=== PATIENT | female | born 1955 | race Caucasian/White ===

== ENCOUNTER 2019-05-22 23:00 | Emergency (ER) | payer MEDICARE, MEDICAID ==
[~2019-05-22] VITALS: Ht 165.1 cm; Wt 75.5 kg
[~2019-05-22 23:00] MED LIST: ALBU18HF2 INH; BECL7.3A INH; CARI350T PO; CLON-529 PO; GABA300C PO; lidocaine 1%/epinephrine 1:100,000 injection 50ml vial ONE
[2019-05-23] MEDS ORDERED: TETanus/Pertussis (Acell)/Diphther VAC/PF (Tdap-Adult) 0.5ml syringe IM ONE (01:00)
[2019-05-23 01:37] VITALS: BP 127/91
[2019-06-02] MEDS ORDERED: PROM12.512 PO (14:55)
[2019-06-02] MEDS ORDERED: ALBU1.257 NEB (14:55)
[2019-06-02] MEDS ORDERED: VICOPROFEN PO (14:55)
[2019-06-02] MEDS ORDERED: HYDR-89 PO (17:18)
== END 2019-05-23 01:37 | disposition home or self-care (01) ==
LOC: ER 23:01
DX: S61.012A Laceration without foreign body of left thumb without damage to nail, initial encounter (principal); J44.9 Chronic obstructive pulmonary disease, unspecified; M19.90 Unspecified osteoarthritis, unspecified site; G89.29 Other chronic pain; Z98.890 Other specified postprocedural states; Z91.041 Radiographic dye allergy status; Z88.2 Allergy status to sulfonamides; Z91.040 Latex allergy status; Z79.899 Other long term (current) drug therapy; W45.8XXA Other foreign body or object entering through skin, initial encounter; Y93.H2 Activity, gardening and landscaping; Y92.89 Other specified places as the place of occurrence of the external cause; Y99.8 Other external cause status
CPT/HCPCS: 12002; 12042; 90471; 99284; 99285

== ENCOUNTER 2019-05-29 05:20 | Emergency (ER) | payer MEDICARE, MEDICAID ==
[~2019-05-29] VITALS: Ht 165.1 cm; Wt 79.5 kg
[~2019-05-29 05:20] MED LIST changes: -lidocaine 1%/epinephrine 1:100,000 injection 50ml vial ONE
[2019-05-29 05:27] VITALS: BP 155/78
[2019-05-29] MEDS ORDERED: clindamycin 150mg capsule PO ONE (05:50)
[2019-05-29] MEDS ORDERED: CLIN150C2 PO (05:56)
[2019-06-02] MEDS ORDERED: VICOPROFEN PO (14:55)
[2019-06-02] MEDS ORDERED: ALBU1.257 NEB (14:55)
[2019-06-02] MEDS ORDERED: PROM12.512 PO (14:55)
[2019-06-02] MEDS ORDERED: HYDR-89 PO (17:18)
== END 2019-05-29 06:06 | disposition home or self-care (01) ==
LOC: ER 05:21
DX: S61.011D Laceration without foreign body of right thumb without damage to nail, subsequent encounter (principal); L08.9 Local infection of the skin and subcutaneous tissue, unspecified; J44.9 Chronic obstructive pulmonary disease, unspecified; M19.90 Unspecified osteoarthritis, unspecified site; G89.29 Other chronic pain; Z98.890 Other specified postprocedural states; Z88.8 Allergy status to other drugs, medicaments and biological substances; Z88.2 Allergy status to sulfonamides; Z91.040 Latex allergy status; Z79.899 Other long term (current) drug therapy; X58.XXXD Exposure to other specified factors, subsequent encounter
CPT/HCPCS: 99283

== ENCOUNTER 2019-06-03 05:09 | Day surgery (SDC) | payer MEDICARE, MEDICAID ==
[2019-06-02 15:48] LABS: BASOPHILS % (AUTO) 0.1 % (0-1); EOSINOPHILS # (AUTO) 0.2 X10'3 (0-0.9); LYMPHOCYTES # (AUTO) 1.7 X10'3 (1.1-4.8); LYMPHOCYTES % (AUTO) 43.5 % (21-51); MEAN CORPUSCULAR HEMOGLOBIN 30.5 PG (27.0-31.0); MEAN CORPUSCULAR HGB CONC 32.9 g/dL (33.0-36.5); MEAN CORPUSCULAR VOLUME 92.5 FL (78-98); MONOCYTES # (AUTO) 0.4 X10'3 (0-0.9); MONOCYTES % (AUTO) 9.2 % (2-12); NEUTROPHILS # (AUTO) 1.7 X10'3 (1.8-7.7); NEUTROPHILS % (AUTO) 42.2 % (42-75); PRE OP HEMATOCRIT 35.8 % (35.0-45.0); PRE OP HEMOGLOBIN 11.8 g/dL (12.0-16.0); PRE OP PLATELET COUNT 198 X10'3 (140-440); RED BLOOD COUNT 3.87 X10'6 (4.20-5.60); RED CELL DISTRIBUTION WIDTH 13.6 % (11.5-14.5)
[2019-06-02 15:57] LABS: PRE OP PROTIME 10.1 SECONDS (9.0-12.0)
[2019-06-02 16:00] LABS: ALBUMIN 4.1 G/DL (3.4-5.0); ALBUMIN/GLOBULIN RATIO 1.1 (1.1-1.5); ALKALINE PHOSPHATASE 68 IU/L (46-116); BLOOD UREA NITROGEN 23 MG/DL (7-18); BUN/CREATININE RATIO 28.8 (6.6-38.0); CALCIUM 9.6 MG/DL (8.5-10.1); CHLORIDE 105 MMOL/L (99-107); PRE OP ALT 33 U/L (30-65); PRE OP ANION GAP 8 (8-16); PRE OP AST 24 U/L (10-37); PRE OP BILIRUB, TOTAL 0.2 MG/DL (0.0-1.0); PRE OP GLUCOSE 105 MG/DL (70-104); PRE OP POTASSIUM 4.5 MMOL/L (3.4-5.1); PRE OP SODIUM 140 MMOL/L (135-145); TOTAL CARBON DIOXIDE 27.2 MMOL/L (24-32); eGFR 72 ML/MIN
[~2019-06-03] VITALS: Ht 165.1 cm; Wt 78.4 kg
[~2019-06-03 05:09] MED LIST changes: +ALBU1.257 NEB; -ALBU18HF2 INH; -BECL7.3A INH; -CARI350T PO; -CLON-529 PO; +HYDR-89 PO; +PROM12.512 PO; +ringers solution, lacted 1,000 ML IV SCH
[2019-06-03] MEDS ORDERED: ceFAZolin 1GM/D5W- ADD-VANTAGE 50 ML IV ONE (05:30)
[2019-06-03] MEDS ORDERED: famotidine 20mg tablet PO ONE (05:30)
[2019-06-03 05:45] VITALS: BP 99/51
[2019-06-03] MEDS ORDERED: LIDOcaine 1% (10mg/ml) 2ml vial ONE (06:17)
[2019-06-03] MEDS ORDERED: BUPIVAcaine/PF 2.5 mg/ml (0.25%) 30ml vial ONE (06:40)
[2019-06-03] MEDS ORDERED: albuterol 2.5 MG/3 ML nebule NEB ONE (07:10)
--- NOTE | 2019-06-03 07:18 | NUR ---
RN ORDERED 2.5MG SVN TX FOR THE PT. I WAS GETTING READY TO ADMINISTER THE TX, DR GONZALEZ ADVISED THAT THE PT DIDNT NEED THE TX AFTER THE MEDICATION WAS POURED INTO THE NEBULIZER. MEDICATION WAS POURED OUT AND WASTED.
[2019-06-03] MEDS ORDERED: LIDOcaine 1% 30ml preserv. free vial ONE (07:19)
[2019-06-03] MEDS ORDERED: fentaNYL/PF 50MCG/1 ML 2ML syringe ONE (07:20)
[2019-06-03] MEDS ORDERED: MIDAZolam 5mg/5ml vial ONE (07:21)
[2019-06-03] MEDS ORDERED: ketorolac trometh. 30mg/ml inj. ONE (07:23)
[2019-06-03] MEDS ORDERED: morphine 4 MG/ML inj SYRINge IV PRN ×2 (07:45)
[2019-06-03] MEDS ORDERED: proCHLORperazine 10 MG/2 ml inj IV PRN (07:45)
[2019-06-03] MEDS ORDERED: ringers solution, lacted 1,000 ML IV SCH (07:45)
[2019-06-03] MEDS ORDERED: ondansetron/PF 4mg/2ml inj IV PRN (07:45)
[2019-06-03] MEDS ORDERED: meperidine/PF 25mg/ml syringe IV PRN ×3 (07:45)
[2019-06-03 07:59] VITALS: BP 108/79
--- NOTE | 2019-06-03 07:59 | NUR ---
Received from OR via you, accompanied by Anesthesiologist CARLOS and report given by Anesthesiolgist. All VS stable, NC at 3L O2 100%, left wrist IV 20G IVF at 100cc/hr, right forarm/wrist/thumb wrapped in with splint. Pt responsive to questions. Able to move all extremeties, will monitor closely.
[2019-06-03 08:09] VITALS: BP 110/79
[2019-06-03 08:19] VITALS: BP 91/42
[2019-06-03 08:29] VITALS: BP 112/83
[2019-06-03 08:39] VITALS: BP 116/90
--- NOTE | 2019-06-03 08:59 | NUR ---
Pt discharged by wheelchair to vehicle without incident. Pt verbalized understanding of all discharge information. Fingers remain slightly tingly but she states she does have feeling. IV discontinued, ICE pack home with patient, all belongings with patient, clothes, ring, glasses. Pt already has an appointment on Jun 16. Pt already has chronic pain meds she takes at home so no new prescriptions.
== END 2019-06-03 08:59 | disposition home or self-care (01) ==
LOC: PAS 05:09
PROVIDERS: ATTEND Orthopaedic Surgery Hand Surgery
DX: S66.221A Laceration of extensor muscle, fascia and tendon of right thumb at wrist and hand level, initial encounter (principal); J44.9 Chronic obstructive pulmonary disease, unspecified; F17.210 Nicotine dependence, cigarettes, uncomplicated; G89.29 Other chronic pain; M19.90 Unspecified osteoarthritis, unspecified site; Z86.14 Personal history of Methicillin resistant Staphylococcus aureus infection; Z86.19 Personal history of other infectious and parasitic diseases; E66.9 Obesity, unspecified; Z68.28 Body mass index [BMI] 28.0-28.9, adult; Z88.2 Allergy status to sulfonamides; Z88.8 Allergy status to other drugs, medicaments and biological substances; Z79.01 Long term (current) use of anticoagulants; Z79.899 Other long term (current) drug therapy; X58.XXXA Exposure to other specified factors, initial encounter; Y93.89 Activity, other specified; Y92.89 Other specified places as the place of occurrence of the external cause; Y99.8 Other external cause status
CPT/HCPCS: 26418; 36415; 80053; 82948; 85025; 85610; 85730; 94760; J0690; J1885; J2001; J2250; J3010; J3490; A4215; J7120

== ENCOUNTER 2019-08-31 10:00 | Day surgery (SDC) | payer MEDICARE, MEDICAID ==
[2019-08-28 11:13] LABS: BASOPHILS % (AUTO) 0.1 % (0-1); EOSINOPHILS # (AUTO) 0.3 X10'3 (0-0.9); EOSINOPHILS % (AUTO) 7.8 % (0-6); LYMPHOCYTES % (AUTO) 30.5 % (21-51); MEAN CORPUSCULAR HGB CONC 33.8 g/dL (33.0-36.5); MEAN CORPUSCULAR VOLUME 91.9 FL (78-98); MONOCYTES # (AUTO) 0.3 X10'3 (0-0.9); MONOCYTES % (AUTO) 9.4 % (2-12); NEUTROPHILS # (AUTO) 1.8 X10'3 (1.8-7.7); NEUTROPHILS % (AUTO) 52.2 % (42-75); PRE OP HEMATOCRIT 35.8 % (35.0-45.0); PRE OP HEMOGLOBIN 12.1 g/dL (12.0-16.0); PRE OP PLATELET COUNT 199 X10'3 (140-440); RED BLOOD COUNT 3.89 X10'6 (4.20-5.60); RED CELL DISTRIBUTION WIDTH 13.8 % (11.5-14.5)
[2019-08-28 11:34] LABS: PRE OP INR 0.9 INR
[2019-08-28 11:38] LABS: ALKALINE PHOSPHATASE 78 IU/L (46-116); BLOOD UREA NITROGEN 17 MG/DL (7-18); BUN/CREATININE RATIO 19.5 (6.6-38.0); CALCIUM 9.8 MG/DL (8.5-10.1); CHLORIDE 104 MMOL/L (99-107); CREATININE 0.87 MG/DL (0.40-0.90); PRE OP ALT 26 U/L (30-65); PRE OP ANION GAP 5 (8-16); PRE OP AST 23 U/L (10-37); PRE OP BILIRUB, TOTAL 0.2 MG/DL (0.0-1.0); PRE OP GLUCOSE 103 MG/DL (70-104); PRE OP POTASSIUM 4.5 MMOL/L (3.4-5.1); PRE OP SODIUM 138 MMOL/L (135-145); TOTAL CARBON DIOXIDE 29.1 MMOL/L (24-32); TOTAL PROTEIN 8.1 G/DL (6.4-8.2); eGFR 65 ML/MIN
[~2019-08-31] VITALS: Ht 165.1 cm; Wt 77.7 kg
[2019-08-31] VITALS (7 sets, daily range): BP systolic 110–125; BP diastolic 70–79
[~2019-08-31 10:00] MED LIST changes: -ringers solution, lacted 1,000 ML IV SCH
[2019-08-31] MEDS ORDERED: LIDOcaine 0.5% (5mg/ml) 50ml vial ONE (11:02)
[2019-08-31] MEDS ORDERED: ringers solution, lacted 1,000 ML IV SCH ×2 (11:15→11:49)
[2019-08-31] MEDS ORDERED: famotidine 20mg tablet PO ONE (11:15)
[2019-08-31] MEDS ORDERED: cefazolin/dext.iso 2gm/50ml 50 ML IV ONE (11:15)
[2019-08-31] MEDS ORDERED: albuterol 2.5 MG/3 ML nebule NEB ONE (11:15)
[2019-08-31] MEDS ORDERED: meperidine/PF 25mg/ml syringe IV PRN ×3 (11:50)
[2019-08-31] MEDS ORDERED: morphine 4 MG/ML inj SYRINge IV PRN ×2 (11:50)
[2019-08-31] MEDS ORDERED: proCHLORperazine 10 MG/2 ml inj IV PRN (11:50)
[2019-08-31] MEDS ORDERED: ondansetron/PF 4mg/2ml inj IV PRN (11:50)
[2019-08-31] MEDS ORDERED: BUPIVAcaine/PF 2.5mg/ml (0.25%) 10ml vial ONE (12:02)
[2019-08-31] MEDS ORDERED: midazolam 2 mg/2 ml injection ONE ×2 (12:12→12:24)
[2019-08-31] MEDS ORDERED: fentaNYL/PF 50MCG/1 ML 2ML syringe ONE (12:12)
[2019-08-31] MEDS ORDERED: propofol inj 20 ML IV ONE (12:22)
--- NOTE | 2019-08-31 12:50 | NUR ---
ADMITTED TO PACU FROM OR ACCOMPANIED BY ANESTHESIA. INTIAL PHYSICAL ASSESSMENT DONE AND RECORDED. REPORT RECEIVED FROM ANESTHESIA.
--- NOTE | 2019-08-31 13:30 | NUR ---
DISCHARGE CRITERIA MET, DISCHARGE INSTRUCTIONS GIVEN, DEMONSTRATES VERBAL UNDERSTANDING. DISCHARGED HOME IN GOOD CONDITION.
== END 2019-08-31 13:30 | disposition home or self-care (01) ==
LOC: PAS 10:00
PROVIDERS: ATTEND Orthopaedic Surgery Hand Surgery
DX: T81.40XA Infection following a procedure, unspecified, initial encounter (principal); K21.9 Gastro-esophageal reflux disease without esophagitis; J44.9 Chronic obstructive pulmonary disease, unspecified; M06.9 Rheumatoid arthritis, unspecified; F17.210 Nicotine dependence, cigarettes, uncomplicated; G89.29 Other chronic pain; Z90.49 Acquired absence of other specified parts of digestive tract; Z86.19 Personal history of other infectious and parasitic diseases; Z79.01 Long term (current) use of anticoagulants; Y83.8 Other surgical procedures as the cause of abnormal reaction of the patient, or of later complication, without mention of misadventure at the time of the procedure; Y92.89 Other specified places as the place of occurrence of the external cause
CPT/HCPCS: 26418; 36415; 80053; 82948; 85025; 85610; 85730; J2001; J2250; J2704; J3010; J3490; A4215; J7120

== ENCOUNTER 2020-09-19 10:52 | Emergency (ER) | payer MEDICARE, MEDICAID ==
[~2020-09-19] VITALS: Ht 165.1 cm; Wt 77.7 kg
[2020-09-19 11:31] LABS: BASOPHILS % (AUTO) 0.2 % (0-1); EOSINOPHILS # (AUTO) 0.1 X10'3 (0-0.9); EOSINOPHILS % (AUTO) 2.5 % (0-6); HEMATOCRIT 36.1 % (35.0-45.0); HEMOGLOBIN 12.2 g/dl (12.0-16.0); LYMPHOCYTES # (AUTO) 1.3 X10'3 (1.1-4.8); LYMPHOCYTES % (AUTO) 33.7 % (21-51); MEAN CORPUSCULAR HEMOGLOBIN 31.2 PG (27.0-31.0); MEAN CORPUSCULAR HGB CONC 33.8 g/dL (33.0-36.5); MEAN CORPUSCULAR VOLUME 92.1 FL (78-98); MEAN PLATELET VOLUME 8.9 FL (7.4-10.4); MONOCYTES # (AUTO) 0.3 X10'3 (0-0.9); MONOCYTES % (AUTO) 8.8 % (2-12); NEUTROPHILS # (AUTO) 2.1 X10'3 (1.8-7.7); NEUTROPHILS % (AUTO) 54.8 % (42-75); PLATELET COUNT 221 X10'3 (140-440); RED BLOOD COUNT 3.92 X10'6 (4.20-5.60); RED CELL DISTRIBUTION WIDTH 13.8 % (11.5-14.5); WHITE BLOOD COUNT 3.8 X10'3 (4.5-11.0)
[2020-09-19 11:41] LABS: ABG BASE EXCESS -1.4 mmol/L (-2.0-2.0); ABG HCO3 20.9 mmol/L (22.0-26.0); ABG OXYGEN SATURATION 98.1 % (94-97); ABG PCO2 (T) 28.5 mmHg (32.0-45.0); ABG PO2 (T) 88.2 mmHg (75.0-100.0); ALLEN'S TEST POSITIVE; FCOHb 1.8 % (0.0-3.9); FMetHb 0.1 % (0.0-1.5); FO2Hb 96.2 % (94-97); TOTAL HEMOGLOBIN 12.8 G/dl (12.0-16.0)
[2020-09-19 11:41] LABS: PARTIAL THROMBOPLASTIN TIME 23 SECONDS (22-32)
[2020-09-19 11:44] LABS: ALANINE AMINOTRANSFERASE 38 U/L (12-78); ALBUMIN 4.2 G/DL (3.4-5.0); ALBUMIN/GLOBULIN RATIO 1.1 (1.1-1.5); ALKALINE PHOSPHATASE 75 IU/L (46-116); ANION GAP 12 (8-16); ASPARTATE AMINO TRANSFERASE 26 U/L (10-37); BILIRUBIN,TOTAL 0.4 MG/DL (0.1-1.0); BLOOD UREA NITROGEN 24 MG/DL (7-18); BUN/CREATININE RATIO 25.5 (6.6-38.0); CALCIUM 9.6 MG/DL (8.5-10.1); CHLORIDE 105 MMOL/L (99-107); CREATININE 0.94 MG/DL (0.40-0.90); GLUCOSE 113 MG/DL (70-104); SODIUM 139 MMOL/L (135-145); TOTAL CARBON DIOXIDE 22.4 MMOL/L (24-32); TOTAL PROTEIN 8.1 G/DL (6.4-8.2); eGFR 59 ML/MIN
[2020-09-19 11:55] LABS: FERRITIN 40 NG/ML (8-252); LACTATE DEHYDROGENASE 162 U/L (81-234)
[2020-09-19 11:56] LABS: C-REACTIVE PROTEIN < 0.05 MG/DL (0.0-0.5)
[2020-09-19] MEDS ORDERED: magnesium powder PO (12:43)
[2020-09-19] MEDS ORDERED: ASCO-283 PO (12:43)
[2020-09-19] MEDS ORDERED: BUDE180A INH (12:43)
[2020-09-19 14:38] VITALS: BP 132/82
== END 2020-09-19 14:54 | disposition home or self-care (01) ==
LOC: ER 10:53
DX: R06.02 Shortness of breath (principal); Z20.828 Contact with and (suspected) exposure to other viral communicable diseases; J44.9 Chronic obstructive pulmonary disease, unspecified; M19.90 Unspecified osteoarthritis, unspecified site; G89.29 Other chronic pain; M79.7 Fibromyalgia; F17.200 Nicotine dependence, unspecified, uncomplicated; Z98.890 Other specified postprocedural states; Z98.1 Arthrodesis status; Z91.041 Radiographic dye allergy status; Z88.2 Allergy status to sulfonamides; Z91.040 Latex allergy status; Z79.899 Other long term (current) drug therapy
CPT/HCPCS: 36415; 36600; 71045; 71250; 80053; 82728; 82803; 83615; 83880; 84145; 84484; 85018; 85025; 85379; 85384; 85610; 85730; 86140; 87635; 93005; 99285; C9803

== ENCOUNTER 2020-11-03 12:32 | Emergency (ER) | payer MEDICARE, MEDICAID ==
[~2020-11-03] VITALS: Ht 162.6 cm; Wt 77.7 kg
[~2020-11-03 12:32] MED LIST changes: +ASCO-283 PO; +BUDE180A INH; +magnesium powder PO
[2020-11-03] MEDS ORDERED: ketorolac tromethamine 15mg/ml inj. IM ONE (14:00)
[2020-11-03] MEDS ORDERED: ondansetron 4mg rapidly disintigrating tab PO ONE (14:05)
[2020-11-03 14:22] LABS: BASOPHILS % (AUTO) 0.2 % (0-1); EOSINOPHILS # (AUTO) 0.2 X10'3 (0-0.9); EOSINOPHILS % (AUTO) 4.4 % (0-6); HEMATOCRIT 37.1 % (35.0-45.0); HEMOGLOBIN 12.5 g/dl (12.0-16.0); LYMPHOCYTES # (AUTO) 1.2 X10'3 (1.1-4.8); LYMPHOCYTES % (AUTO) 33.3 % (21-51); MEAN CORPUSCULAR HEMOGLOBIN 31.3 PG (27.0-31.0); MEAN CORPUSCULAR HGB CONC 33.8 g/dL (33.0-36.5); MEAN CORPUSCULAR VOLUME 92.4 FL (78-98); MEAN PLATELET VOLUME 8.9 FL (7.4-10.4); MONOCYTES # (AUTO) 0.4 X10'3 (0-0.9); MONOCYTES % (AUTO) 10.6 % (2-12); NEUTROPHILS # (AUTO) 1.9 X10'3 (1.8-7.7); NEUTROPHILS % (AUTO) 51.5 % (42-75); PLATELET COUNT 209 X10'3 (140-440); RED BLOOD COUNT 4.01 X10'6 (4.20-5.60); RED CELL DISTRIBUTION WIDTH 13.6 % (11.5-14.5); WHITE BLOOD COUNT 3.7 X10'3 (4.5-11.0)
[2020-11-03 14:37] LABS: ALBUMIN 4.3 G/DL (3.4-5.0); ANION GAP 6 (8-16); BILIRUBIN,TOTAL 0.4 MG/DL (0.1-1.0); BLOOD UREA NITROGEN 21 MG/DL (7-18); CALCIUM 9.5 MG/DL (8.5-10.1); CHLORIDE 103 MMOL/L (99-107); CREATININE 0.84 MG/DL (0.40-0.90); GLUCOSE 111 MG/DL (70-104); SODIUM 139 MMOL/L (135-145); TOTAL CARBON DIOXIDE 29.9 MMOL/L (24-32); TOTAL PROTEIN 8.2 G/DL (6.4-8.2); eGFR 68 ML/MIN
[2020-11-03 14:38] LABS: ALANINE AMINOTRANSFERASE 31 U/L (12-78); ALBUMIN/GLOBULIN RATIO 1.1 (1.1-1.5); ALKALINE PHOSPHATASE 71 IU/L (46-116); ASPARTATE AMINO TRANSFERASE 23 U/L (10-37)
[2020-11-03 14:42] VITALS: BP 138/93
--- NOTE | 2020-11-03 14:48 | NUR ---
PT HAS BEEN MEDICATED, AWAITING LAB RESULTS. PT SITTING IN CHAIR, GIVEN WARM BLANKETS
== END 2020-11-03 15:56 | disposition home or self-care (01) ==
LOC: ER 12:35
DX: M54.89 Other dorsalgia (principal); R51.9 Headache, unspecified; R11.0 Nausea; Z20.822 Contact with and (suspected) exposure to COVID-19; J44.9 Chronic obstructive pulmonary disease, unspecified; M19.90 Unspecified osteoarthritis, unspecified site; G89.29 Other chronic pain; Z98.890 Other specified postprocedural states; Z88.2 Allergy status to sulfonamides; Z88.8 Allergy status to other drugs, medicaments and biological substances; Z91.040 Latex allergy status; Z79.899 Other long term (current) drug therapy
CPT/HCPCS: 36415; 80053; 85025; 87635; 96372; 99284; J1885

== ENCOUNTER 2020-11-11 12:43 | Emergency (ER) | payer MEDICARE, MEDICAID ==
[~2020-11-11] VITALS: Ht 162.6 cm; Wt 78.6 kg
[2020-11-11 14:09] VITALS: BP 109/63
[2020-11-11] MEDS ORDERED: ketorolac tromethamine 15mg/ml inj. IM ONE (14:25)
== END 2020-11-11 14:57 | disposition home or self-care (01) ==
LOC: ER 12:44
DX: M54.5 Low back pain (principal); R10.84 Generalized abdominal pain; R11.0 Nausea; J44.9 Chronic obstructive pulmonary disease, unspecified; M19.90 Unspecified osteoarthritis, unspecified site; G89.29 Other chronic pain; Z98.890 Other specified postprocedural states; Z88.2 Allergy status to sulfonamides; Z88.8 Allergy status to other drugs, medicaments and biological substances; Z91.040 Latex allergy status; Z79.899 Other long term (current) drug therapy
CPT/HCPCS: 96372; 99283; J1885

== ENCOUNTER 2021-08-18 14:02 | Day surgery (SDC) | payer MEDICARE, MEDICAID ==
[2021-08-08 15:05] LABS: BASOPHILS % (AUTO) 0.1 % (0-1); EOSINOPHILS # (AUTO) 0.1 X10'3 (0-0.9); LYMPHOCYTES # (AUTO) 1.1 X10'3 (1.1-4.8); LYMPHOCYTES % (AUTO) 30.3 % (21-51); MEAN CORPUSCULAR HEMOGLOBIN 30.8 PG (27.0-31.0); MEAN CORPUSCULAR HGB CONC 33.7 g/dL (33.0-36.5); MEAN CORPUSCULAR VOLUME 91.4 FL (78-98); MEAN PLATELET VOLUME 9.5 FL (7.4-10.4); MONOCYTES # (AUTO) 0.3 X10'3 (0-0.9); MONOCYTES % (AUTO) 8.2 % (2-12); NEUTROPHILS # (AUTO) 2.1 X10'3 (1.8-7.7); NEUTROPHILS % (AUTO) 59.4 % (42-75); PRE OP HEMATOCRIT 34.2 % (35.0-45.0); PRE OP HEMOGLOBIN 11.5 g/dL (12.0-16.0); PRE OP PLATELET COUNT 212 X10'3 (140-440); RED BLOOD COUNT 3.75 X10'6 (4.20-5.60); RED CELL DISTRIBUTION WIDTH 13.6 % (11.5-14.5)
[2021-08-08 15:24] LABS: ALBUMIN 3.8 G/DL (3.4-5.0); ALKALINE PHOSPHATASE 68 IU/L (46-116); BLOOD UREA NITROGEN 26 MG/DL (7-18); BUN/CREATININE RATIO 35.6 (6.6-38.0); CALCIUM 9.5 MG/DL (8.5-10.1); CHLORIDE 105 MMOL/L (99-107); CREATININE 0.73 MG/DL (0.40-0.90); PRE OP ALT 31 U/L (30-65); PRE OP ANION GAP 11 (8-16); PRE OP AST 19 U/L (10-37); PRE OP BILIRUB, TOTAL 0.3 MG/DL (0.0-1.0); PRE OP GLUCOSE 113 MG/DL (70-104); PRE OP POTASSIUM 4.1 MMOL/L (3.4-5.1); PRE OP SODIUM 141 MMOL/L (135-145); TOTAL CARBON DIOXIDE 24.8 MMOL/L (24-32); TOTAL PROTEIN 7.8 G/DL (6.4-8.2); eGFR 79 ML/MIN
[2021-08-08 15:26] LABS: PRE OP PROTIME 10.4 SECONDS (9.0-12.0)
[2021-08-18] VITALS (17 sets, daily range): BP systolic 104–135; BP diastolic 69–87
[~2021-08-18] VITALS: Ht 167.6 cm; Wt 73.3 kg
[2021-08-18] MEDS: potassium cl 20mEq in 1/2 NS 1,000 ML IV SCH ×2 (14:00→22:00)
[~2021-08-18 14:02] MED LIST changes: -ALBU1.257 NEB; -ASCO-283 PO; +ASCO1TAB13 PEG; +CARB15DR82 EACHEYE; +CBD GUMMIES PO; +CHOL50002 PO; +FOLI1TAB50 PEG; +HYDROmorphone inj. 0.5 MG/0.5 ML DISP.SYRIN IV PRN; +LACT1CAP65 PO; +LYSI500T11 PO; +OMEG1CAP61 PO; +ROPIVAcaine 0.2% (10 MG/5 ML) BOLUS INJECTION ADDCANAL PRN; +ROPIVAcaine 0.2%/PF PUMP/bolus 545 ML ADDCANAL SCH; +ROPIVAcaine 0.5% (5mg/ml) 30ml vial ONE; +acetaminophen 325mg tablet PO ONE; +acetaminophen 325mg tablet PO PRN; +albuterol 2.5 MG/3 ML nebule NEB ONE; +ceFAZolin 2gm in dextrose, iso 50 ML IV ONE; +celeCOXIB 100mg capsule PO ONE; +diphenhydrAMINE 25mg capsule PO PRN; +epiNEPHrine 1 mg/ml inj ONE; +famotidine 20mg tablet PO ONE; +gabapentin 300mg capsule PO ONE; +hydrALAZINE 20mg/ml inj. IV PRN; +ketorolac trometh. 30mg/ml inj. ONE; +labetalol 20mg/4ml (5mg/ml) syringe IV PRN; +magnesium hydroxide 30ml (MOM) UD suspension PO PRN; -magnesium powder PO; +meperidine/PF 25mg/ml syringe IV PRN; +metoclopramide 5 mg/ml inj IV ONE; +midazolam 1 mg/ML 2ml injection ONE; +morphine 2 MG/ML inj. syringe IV PRN; +morphine 4 MG/ML inj SYRINge IV PRN; +ondansetron/PF 4mg/2ml inj IV PRN; +oxyCODONE SR 10mg (sust. release) tab -2 tabs (20mg) PO ONE; +oxyCODONE/APAP 10/325mg tablet PO PRN; +proCHLORperazine 10 MG/2 ml inj IV PRN; +ringers solution, lacted 1,000 ML IV SCH; +tranexamic acid 1gm/0.7% sal. 100 ML IV ONE; +vancomycin 1,000mg inj ONE; +vancomycin 1,500 MG in NS 300ml IV soln IV ONE
[2021-08-18] MEDS ORDERED: fentaNYL /PF 50mcg/ml 5ml ampule ONE (14:10)
[2021-08-18] MEDS ORDERED: LIDOcaine 2% (20mg/ml) 5ml vial ONE (14:10)
[2021-08-18] MEDS ORDERED: ondansetron/PF 4mg/2ml inj ONE (14:10)
[2021-08-18] MEDS ORDERED: dexamethasone sod phosphate 4mg/ml inj. ONE (14:10)
[2021-08-18] MEDS ORDERED: propofol inj 20 ML IV ONE (14:10)
[2021-08-18] MEDS ORDERED: rocuronium 10mg/ml inj IV ONE (14:10)
[2021-08-18] MEDS ORDERED: cloNIDine hcl/PF 100mcg/ml inj IJ ONE (14:31)
[2021-08-18] MEDS ORDERED: ROPIVAcaine 0.5% (5mg/ml) 30ml vial ONE (15:20)
[2021-08-18] MEDS ORDERED: glycopyrrolate 0.2mg/ml inj ONE (15:23)
[2021-08-18] MEDS ORDERED: neostigmine methylsulfate 1 MG/ML 10ml vial ONE (15:23)
[2021-08-18] MEDS ORDERED: morphine 10mg/ml inj. ONE (15:24)
--- NOTE | 2021-08-18 15:28 | NUR ---
Received from OR via ORTHO BED WITH NO FRAME OR TRAPEZE , accompanied by Anesthesiologist HERMILO and report given by Anesthesiolgist. PATIENT WITH 20G PIV IN RIGHT UE RUNNING LR AT 100. MEDICATED BY ANESTHESIA UPON ARRIVAL WITH MORPHINE AND DEMEROL. SCDS DONNED. LEFFT KNEE WRAP WITH POWDER PACK AND ON Q PLACED UPON ARRIVAL FOR PAIN CONTROL. PATIENT WITH +DP ON LEFT FOOT. PATIENT VSS AT THIS TIME. Addendum: 08/18/21 at 1537 by Ronan Guzman RN, RN Amended: Links added.
[2021-08-18] MEDS: acetaminophen 1,000mg/100ml IV 100 ML IV PRN ×2 (15:46→16:55)
[2021-08-18] MEDS: meperidine/PF 25mg/ml syringe IV PRN ×3 (15:50→16:28)
--- NOTE | 2021-08-18 16:28 | NUR ---
Report called to receiving nurse. Transferred via surgical bed with 2 bags of Belongings that were placed in closet of [address]. patient has phone per her request. Special Issues communicated to receiving surgical nurse. bed low, call light in hand and pain at a 6-7 at this time. rn present and aware to accept care of patient. Addendum: 08/18/21 at 1653 by Ronan Guzman RN RN Amended: Links added.
[2021-08-18] MEDS ORDERED: tranexamic acid inj. 700 MG in normal saline 100ml IV soln 100 ML IV ONE (17:00)
[2021-08-18] MEDS ORDERED: bisacodyl 10mg suppository rectal RC PRN (20:00)
[2021-08-18] MEDS ORDERED: vancomycin/NS 1 GM ADD-VANTAGE 250 ML IV SCH (20:00)
[2021-08-18] MEDS ORDERED: proMETHazine 25mg tablet PO PRN (20:00)
[2021-08-18] MEDS: gabapentin 300mg capsule PO SCH (20:01)
[2021-08-18] MEDS: ascorbic acid 500mg tablet PO SCH (20:01)
[2021-08-18] MEDS: budesonide 0.5mg/2ml UD nebule IH SCH (20:35)
[2021-08-18] MEDS ORDERED: sennosides 8.6mg tablet PO SCH (21:00)
[2021-08-18] MEDS: HYDROcodone/acetaminophen 10/325mg tab PO PRN (22:55)
[2021-08-18] MEDS: ibuprofen 200mg tablet PO PRN (22:56)
[2021-08-19] VITALS: BP 103/63
[2021-08-19] MEDS: ceFAZolin 2gm in dextrose, iso 50 ML IV SCH ×2 (00:36→07:05)
[2021-08-19] MEDS: HYDROcodone/acetaminophen 10/325mg tab PO PRN ×2 (04:05→08:37)
[2021-08-19] MEDS: potassium cl 20mEq in 1/2 NS 1,000 ML IV SCH ×3 (04:07→13:15)
[2021-08-19 04:17] VITALS: BP 127/80
--- NOTE | 2021-08-19 06:18 | NUR ---
Problems reprioritized. Patient report given, questions answered & plan of care reviewed with ELIZA Vogt.
[2021-08-19 06:49] LABS: BASOPHILS % (AUTO) 0 % (0-1); EOSINOPHILS % (AUTO) 0 % (0-6); HEMATOCRIT 30.1 % (35.0-45.0); HEMOGLOBIN 10.2 g/dl (12.0-16.0); LYMPHOCYTES # (AUTO) 0.6 X10'3 (1.1-4.8); LYMPHOCYTES % (AUTO) 8.8 % (21-51); MEAN CORPUSCULAR HEMOGLOBIN 31.3 PG (27.0-31.0); MEAN CORPUSCULAR HGB CONC 33.9 g/dL (33.0-36.5); MEAN CORPUSCULAR VOLUME 92.2 FL (78-98); MEAN PLATELET VOLUME 9.3 FL (7.4-10.4); MONOCYTES # (AUTO) 0.4 X10'3 (0-0.9); MONOCYTES % (AUTO) 6.1 % (2-12); NEUTROPHILS # (AUTO) 5.6 X10'3 (1.8-7.7); NEUTROPHILS % (AUTO) 85.1 % (42-75); PLATELET COUNT 174 X10'3 (140-440); RED BLOOD COUNT 3.26 X10'6 (4.20-5.60); RED CELL DISTRIBUTION WIDTH 13.8 % (11.5-14.5); WHITE BLOOD COUNT 6.6 X10'3 (4.5-11.0)
[2021-08-19 06:54] LABS: ANION GAP 7 (8-16); CHLORIDE 106 MMOL/L (99-107); POTASSIUM 4.7 MMOL/L (3.5-5.1); SODIUM 140 MMOL/L (135-145); TOTAL CARBON DIOXIDE 26.7 MMOL/L (24-32)
[2021-08-19] MEDS: gabapentin 300mg capsule PO SCH ×2 (07:05→13:13)
[2021-08-19] MEDS: ascorbic acid 500mg tablet PO SCH (07:05)
[2021-08-19] MEDS: budesonide 0.5mg/2ml UD nebule IH SCH (07:28)
[2021-08-19 07:34] VITALS: BP 151/86
[2021-08-19] MEDS ORDERED: multivitamins, therapeutics tablet PO SCH (08:00)
[2021-08-19] MEDS ORDERED: aspirin 325mg tablet PO SCH (08:30)
[2021-08-19] MEDS: ibuprofen 200mg tablet PO PRN (08:36)
[2021-08-19] MEDS: HYDROmorphone 1 mg/ml syringe IV PRN ×2 (11:40→16:07)
[2021-08-19 12:56] VITALS: BP 152/89
[2021-08-19] MEDS ORDERED: celeCOXIB 100mg capsule PO SCH (20:00)
== END 2021-08-19 17:00 | disposition home or self-care (01) ==
LOC: SUR 3N 14:02 → PAS 14:02
PROVIDERS: ATTEND Orthopaedic Surgery
DX: M17.12 Unilateral primary osteoarthritis, left knee (principal); J44.9 Chronic obstructive pulmonary disease, unspecified; G43.909 Migraine, unspecified, not intractable, without status migrainosus; F43.10 Post-traumatic stress disorder, unspecified; M19.90 Unspecified osteoarthritis, unspecified site; B19.20 Unspecified viral hepatitis C without hepatic coma; G89.18 Other acute postprocedural pain; Z20.822 Contact with and (suspected) exposure to COVID-19; Z87.891 Personal history of nicotine dependence; Z72.89 Other problems related to lifestyle; Z86.14 Personal history of Methicillin resistant Staphylococcus aureus infection; Z88.2 Allergy status to sulfonamides; Z91.040 Latex allergy status; Z79.899 Other long term (current) drug therapy; Z98.1 Arthrodesis status; Z90.49 Acquired absence of other specified parts of digestive tract; Z98.890 Other specified postprocedural states
CPT/HCPCS: 27447; 36415; 64448; 71046; 73560; 76937; 80051; 80053; 82948; 85025; 85610; 85730; 86885; 86900; 86901; 87081; 94640; 94760; 97110; 97161; 97530; C1713; C1776; J0131; J0171; J0735; J1100; J1170; J1885; J2001; J2175; J2250; J2270; J2405; J2704; J2710; J2765; J2795; J3010; J3370; J7040; J7120; U0003; U0005; Z7506; Z7508; Z7512; A4215; A7000; G0378; J3480; J3490; J7626

== ENCOUNTER 2023-12-30 09:42 | Emergency (ER) | payer MEDICARE, MEDICAID ==
[~2023-12-30] VITALS: Ht 165.1 cm; Wt 74.3 kg
[~2023-12-30 09:42] MED LIST changes: -HYDR-89 PO; -HYDROmorphone inj. 0.5 MG/0.5 ML DISP.SYRIN IV PRN; -OMEG1CAP61 PO; -ROPIVAcaine 0.2% (10 MG/5 ML) BOLUS INJECTION ADDCANAL PRN; -ROPIVAcaine 0.2%/PF PUMP/bolus 545 ML ADDCANAL SCH; -ROPIVAcaine 0.5% (5mg/ml) 30ml vial ONE; +[UNRECOGNIZED DRUG - CODE] PO; -acetaminophen 325mg tablet PO ONE; -acetaminophen 325mg tablet PO PRN; -albuterol 2.5 MG/3 ML nebule NEB ONE; -ceFAZolin 2gm in dextrose, iso 50 ML IV ONE; -celeCOXIB 100mg capsule PO ONE; -diphenhydrAMINE 25mg capsule PO PRN; -epiNEPHrine 1 mg/ml inj ONE; -famotidine 20mg tablet PO ONE; -gabapentin 300mg capsule PO ONE; -hydrALAZINE 20mg/ml inj. IV PRN; -ketorolac trometh. 30mg/ml inj. ONE; -labetalol 20mg/4ml (5mg/ml) syringe IV PRN; -magnesium hydroxide 30ml (MOM) UD suspension PO PRN; -meperidine/PF 25mg/ml syringe IV PRN; -metoclopramide 5 mg/ml inj IV ONE; -midazolam 1 mg/ML 2ml injection ONE; -morphine 2 MG/ML inj. syringe IV PRN; -morphine 4 MG/ML inj SYRINge IV PRN; -ondansetron/PF 4mg/2ml inj IV PRN; -oxyCODONE SR 10mg (sust. release) tab -2 tabs (20mg) PO ONE; -oxyCODONE/APAP 10/325mg tablet PO PRN; -proCHLORperazine 10 MG/2 ml inj IV PRN; -ringers solution, lacted 1,000 ML IV SCH; -tranexamic acid 1gm/0.7% sal. 100 ML IV ONE; -vancomycin 1,000mg inj ONE; -vancomycin 1,500 MG in NS 300ml IV soln IV ONE
[2023-12-30 09:45] VITALS: BP 130/87; PULSE 107; RESP 20; TEMP 98.8; O2SAT 98
== END 2023-12-30 15:56 | disposition left against medical advice (07) ==
LOC: ER 09:43
DX: M54.9 Dorsalgia, unspecified (principal); Z53.21 Procedure and treatment not carried out due to patient leaving prior to being seen by health care provider
CPT/HCPCS: 99281

== ENCOUNTER 2024-02-20 08:56 | Inpatient (IN) | payer MEDICARE, MEDICAID ==
[2024-02-14 16:05] LABS: BASOPHILS % (AUTO) 0.4 % (0-1); EOSINOPHILS # (AUTO) 0.2 X10'3 (0-0.9); LYMPHOCYTES # (AUTO) 1.4 X10'3 (1.1-4.8); LYMPHOCYTES % (AUTO) 37.5 % (21-51); MEAN CORPUSCULAR HEMOGLOBIN 30.6 PG (27.0-31.0); MEAN CORPUSCULAR HGB CONC 33.2 g/dL (33.0-36.5); MEAN CORPUSCULAR VOLUME 92.2 FL (78-98); MEAN PLATELET VOLUME 9.3 FL (7.4-10.4); MONOCYTES # (AUTO) 0.4 X10'3 (0-0.9); MONOCYTES % (AUTO) 10.3 % (2-12); NEUTROPHILS # (AUTO) 1.8 X10'3 (1.8-7.7); NEUTROPHILS % (AUTO) 47.8 % (42-75); PRE OP HEMATOCRIT 35.9 % (35.0-45.0); PRE OP HEMOGLOBIN 11.9 g/dL (12.0-16.0); PRE OP PLATELET COUNT 197 X10'3 (140-440); PRE OP WHITE BLOOD COUNT 3.8 10'3 (4.8-10.8); RED BLOOD COUNT 3.89 X10'6 (4.20-5.60)
[2024-02-14 16:22] LABS: ALBUMIN/GLOBULIN RATIO 1.1 (1.1-1.5); ALKALINE PHOSPHATASE 92 IU/L (46-116); BLOOD UREA NITROGEN 19 MG/DL (7-18); CALCIUM 9.8 MG/DL (8.5-10.1); CHLORIDE 103 MMOL/L (99-107); CREATININE 0.73 MG/DL (0.40-0.90); PRE OP ALT 25 U/L (30-65); PRE OP ANION GAP 7 (8-16); PRE OP AST 23 U/L (10-37); PRE OP BILIRUB, TOTAL 0.5 MG/DL (0.0-1.0); PRE OP GLUCOSE 96 MG/DL (70-104); PRE OP POTASSIUM 3.9 MMOL/L (3.4-5.1); PRE OP SODIUM 138 MMOL/L (135-145); TOTAL CARBON DIOXIDE 27.9 MMOL/L (24-32); TOTAL PROTEIN 7.8 G/DL (6.4-8.2); eGFR 79 ML/MIN
[2024-02-20] VITALS (24 sets, daily range): BP systolic 92–122; BP diastolic 44–90; PULSE 65–102; RESP 14–23; TEMP 97.9–98.7; O2SAT 94–100
[~2024-02-20] VITALS: Ht 166.4 cm; Wt 76.2 kg
[2024-02-20] MEDS: acetaminophen 325mg tablet PO ONE (05:30)
[2024-02-20] MEDS: vancomycin 1,500 MG in NS 300ml IV soln IV ONE (05:30)
[2024-02-20] MEDS: famotidine 20mg tablet PO ONE (05:30)
[2024-02-20] MEDS: celeCOXIB 100mg capsule PO ONE (05:30)
[2024-02-20] MEDS: tranexamic acid inj. 1,000 MG in normal saline IV soln 100ML IV ONE (05:30)
[2024-02-20] MEDS: metoclopramide 5 mg/ml inj IV ONE (05:30)
[2024-02-20] MEDS: gabapentin 300mg capsule PO ONE (05:30)
[2024-02-20] MEDS: cefazolin 2gm/D5W 100mL 100 ML IV ONE (05:30)
[2024-02-20] MEDS: oxyCODONE SR 10mg (sust. release) tab PO ONE (05:30)
[~2024-02-20 08:56] MED LIST changes: +ALBU18HF2 INH; -BUDE180A INH; -CARB15DR82 EACHEYE; -CHOL50002 PO; +HYDROmorphone inj. 0.5 MG/0.5 ML DISP.SYRIN IV PRN; +[UNRECOGNIZED DRUG - CODE] INH; +acetaminophen 325mg tablet PO PRN; +bisacodyl 10mg suppository rectal RC PRN; +diphenhydrAMINE 25mg capsule PO PRN; +naloxone 0.4 mg/ml inj IV PRN; +proMETHazine 25mg tablet PO PRN
[2024-02-20] MEDS: albuterol 2.5 MG/3 ML nebule NEB ONE (10:00)
[2024-02-20] MEDS ORDERED: morphine 4 MG/ML inj SYRINge IV PRN (10:05)
[2024-02-20] MEDS: ringers solution, lacted 1,000 ML IV SCH (10:05)
[2024-02-20] MEDS ORDERED: morphine 2 MG/ML inj. syringe IV PRN (10:05)
[2024-02-20] MEDS ORDERED: proCHLORperazine 10 MG/2 ml inj IV PRN (10:05)
[2024-02-20] MEDS ORDERED: hydrALAZINE 20mg/ml inj. IV PRN (10:05)
[2024-02-20] MEDS ORDERED: ondansetron/PF 4mg/2ml inj IV PRN (10:05)
[2024-02-20] MEDS ORDERED: meperidine/PF 25mg/ml syringe IV PRN ×2 (10:05)
[2024-02-20] MEDS ORDERED: labetalol 20mg/4ml (5mg/ml) syringe IV PRN (10:05)
[2024-02-20] MEDS ORDERED: cloNIDine hcl/PF 100mcg/ml inj ONE (10:46)
[2024-02-20] MEDS ORDERED: epiNEPHrine 1 mg/ml inj ONE (10:47)
[2024-02-20] MEDS ORDERED: ROPIVAcaine 0.5% (5mg/ml) 30ml vial ONE ×2 (10:47→12:27)
[2024-02-20] MEDS ORDERED: vancomycin 1,000mg inj ONE (10:47)
[2024-02-20] MEDS ORDERED: ketorolac trometh. 30mg/ml inj. ONE (10:47)
[2024-02-20] MEDS ORDERED: sevoflurane 250ml liquid IH ONE (11:22)
[2024-02-20] MEDS ORDERED: midazolam 1 mg/ML 2ml injection ONE (11:31)
[2024-02-20] MEDS ORDERED: dexamethasone sod phosphate 4mg/ml inj. ONE (12:27)
[2024-02-20] MEDS ORDERED: LIDOcaine 2% (20mg/ml) 5ml vial ONE (12:27)
[2024-02-20] MEDS ORDERED: rocuronium 10mg/ml inj IV ONE (12:27)
[2024-02-20] MEDS ORDERED: ondansetron/PF 4mg/2ml inj ONE (12:27)
[2024-02-20] MEDS: vancomycin 1,000mg inj IVT ONE (12:27)
[2024-02-20] MEDS ORDERED: propofol inj 20 ML IV ONE (12:27)
[2024-02-20] MEDS ORDERED: fentaNYL /PF 50mcg/ml 5ml ampule ONE (12:27)
[2024-02-20] MEDS: BUPIVACAINE/MELOXICAM 14 ML VIAL IL ONE (12:50)
[2024-02-20] MEDS ORDERED: neostigmine methylsulfate 1 MG/ML 10ml vial ONE (13:03)
[2024-02-20] MEDS ORDERED: glycopyrrolate 0.2mg/ml inj ONE (13:03)
[2024-02-20] MEDS ORDERED: ePHEDrine 50MG/ML INJ. ONE (13:03)
[2024-02-20] MEDS ORDERED: 0.9 % SODIUM CHLORIDE 10 ML VIAL ONE (13:06)
[2024-02-20] MEDS: acetaminophen 1,000mg/100ml IV 100 ML IV ONE (13:35)
[2024-02-20] MEDS: meperidine/PF 25mg/ml syringe IV PRN (13:35)
[2024-02-20] MEDS: oxyCODONE IR 5mg (immed. release) tablet PO PRN (14:37)
[2024-02-20] MEDS: potassium cl 20mEq in 1/2 NS 1,000 ML IV SCH (15:25)
[2024-02-20] MEDS: HYDROmorphone 1 mg/ml syringe IV PRN (16:40)
[2024-02-20] MEDS: tranexamic acid inj. 800 MG in normal saline 100ml IV soln 92 ML IV ONE (16:52)
[2024-02-20] MEDS: cefazolin 2gm/D5W 100mL 100 ML IV SCH (17:26)
[2024-02-20] MEDS: budesonide 0.5mg/2ml UD nebule IH SCH (19:35)
[2024-02-20] MEDS: ROPIVAcaine inj 250 MG, CloNIDine/PF inj 80 MCG, epiNEPHrine inj 0.5 MG in normal salin... IV ONE (20:00)
[2024-02-20] MEDS: ascorbic acid 500mg tablet PO SCH (20:04)
[2024-02-20] MEDS: sennosides 8.6mg tablet PO SCH (20:04)
[2024-02-20] MEDS: gabapentin 300mg capsule PO SCH (20:04)
[2024-02-20] MEDS: VANCOMYCIN 1,500MG inj. 1,500 MG in normal saline 500ml IV soln 300 ML IV ONE (20:58)
[2024-02-21] VITALS (10 sets, daily range): BP systolic 102–139; BP diastolic 63–84; PULSE 69–105; RESP 15–20; TEMP 97.7–99.2; O2SAT 94–99
[2024-02-21 09:05] LABS: BASOPHILS % (AUTO) 0.1 % (0-1); EOSINOPHILS % (AUTO) 0.2 % (0-6); HEMATOCRIT 28.9 % (35.0-45.0); HEMOGLOBIN 9.7 g/dl (12.0-16.0); LYMPHOCYTES # (AUTO) 1.3 X10'3 (1.1-4.8); MEAN CORPUSCULAR HEMOGLOBIN 31.1 PG (27.0-31.0); MEAN CORPUSCULAR HGB CONC 33.7 g/dL (33.0-36.5); MEAN CORPUSCULAR VOLUME 92.2 FL (78-98); MEAN PLATELET VOLUME 9.3 FL (7.4-10.4); MONOCYTES # (AUTO) 0.7 X10'3 (0-0.9); NEUTROPHILS # (AUTO) 6.1 X10'3 (1.8-7.7); NEUTROPHILS % (AUTO) 74.7 % (42-75); PLATELET COUNT 184 X10'3 (140-440); RED BLOOD COUNT 3.13 X10'6 (4.20-5.60); RED CELL DISTRIBUTION WIDTH 13.6 % (11.5-14.5); WHITE BLOOD COUNT 8.2 X10'3 (4.5-11.0)
[2024-02-21 09:19] LABS: ANION GAP 7 (8-16); CHLORIDE 105 MMOL/L (99-107); POTASSIUM 4.2 MMOL/L (3.5-5.1); SODIUM 137 MMOL/L (135-145); TOTAL CARBON DIOXIDE 24.9 MMOL/L (24-32)
[2024-02-21] MEDS: albuterol 2.5 MG/3 ML nebule NEB PRN (09:44)
[2024-02-21] MEDS: aspirin 325mg tablet PO SCH (09:59)
[2024-02-21] MEDS: multivitamins, therapeutics tablet PO SCH (09:59)
[2024-02-21 15:51] LABS: ALBUMIN 3.3 G/DL (3.4-5.0); ANION GAP 6 (8-16); BLOOD UREA NITROGEN 12 MG/DL (7-18); CALCIUM 9.3 MG/DL (8.5-10.1); CHLORIDE 106 MMOL/L (99-107); CREATININE 0.75 MG/DL (0.40-0.90); GLUCOSE 112 MG/DL (70-104); PHOSPHORUS 3.3 MG/DL (2.3-4.5); POTASSIUM 3.9 MMOL/L (3.5-5.1); SODIUM 139 MMOL/L (135-145); TOTAL CARBON DIOXIDE 27.2 MMOL/L (24-32); eCRCL 64 ML/MIN; eGFR 76 ML/MIN
[2024-02-21] MEDS: acetaminophen 325mg tablet PO PRN (16:13)
[2024-02-21] MEDS: celeCOXIB 100mg capsule PO SCH (20:56)
[2024-02-22] VITALS (11 sets, daily range): BP systolic 110–147; BP diastolic 60–84; PULSE 89–98; RESP 15–20; TEMP 97.7–99; O2SAT 91–98
[2024-02-22 06:22] LABS: BASOPHILS % (AUTO) 0.2 % (0-1); EOSINOPHILS # (AUTO) 0.1 X10'3 (0-0.9); EOSINOPHILS % (AUTO) 2.4 % (0-6); HEMATOCRIT 28.2 % (35.0-45.0); HEMOGLOBIN 9.6 g/dl (12.0-16.0); LYMPHOCYTES # (AUTO) 1.9 X10'3 (1.1-4.8); LYMPHOCYTES % (AUTO) 32.9 % (21-51); MEAN CORPUSCULAR HEMOGLOBIN 31.1 PG (27.0-31.0); MEAN CORPUSCULAR HGB CONC 34.1 g/dL (33.0-36.5); MEAN CORPUSCULAR VOLUME 91.4 FL (78-98); MEAN PLATELET VOLUME 9.4 FL (7.4-10.4); MONOCYTES # (AUTO) 0.6 X10'3 (0-0.9); MONOCYTES % (AUTO) 10.6 % (2-12); NEUTROPHILS # (AUTO) 3.1 X10'3 (1.8-7.7); NEUTROPHILS % (AUTO) 53.9 % (42-75); PLATELET COUNT 168 X10'3 (140-440); RED BLOOD COUNT 3.08 X10'6 (4.20-5.60); RED CELL DISTRIBUTION WIDTH 13.7 % (11.5-14.5); WHITE BLOOD COUNT 5.7 X10'3 (4.5-11.0)
[2024-02-22] MEDS: oxyCODONE IR 5mg (immed. release) tablet PO PRN (12:00)
[2024-02-22] MEDS: magnesium hydroxide 30ml (MOM) UD suspension PO PRN (12:00)
[2024-02-22] MEDS: ondansetron/PF 4mg/2ml inj IV PRN (12:07)
[2024-02-23 02:00] VITALS: BP 139/81; PULSE 91; RESP 18; TEMP 98.7; O2SAT 97
[2024-02-23 06:19] LABS: BASOPHILS % (AUTO) 0.1 % (0-1); EOSINOPHILS # (AUTO) 0.2 X10'3 (0-0.9); EOSINOPHILS % (AUTO) 5.1 % (0-6); HEMOGLOBIN 8.7 g/dl (12.0-16.0); LYMPHOCYTES # (AUTO) 1.4 X10'3 (1.1-4.8); LYMPHOCYTES % (AUTO) 32.6 % (21-51); MEAN CORPUSCULAR HGB CONC 33.4 g/dL (33.0-36.5); MEAN CORPUSCULAR VOLUME 92.9 FL (78-98); MEAN PLATELET VOLUME 9.4 FL (7.4-10.4); MONOCYTES # (AUTO) 0.5 X10'3 (0-0.9); MONOCYTES % (AUTO) 12.9 % (2-12); NEUTROPHILS # (AUTO) 2.1 X10'3 (1.8-7.7); NEUTROPHILS % (AUTO) 49.3 % (42-75); PLATELET COUNT 148 X10'3 (140-440); RED CELL DISTRIBUTION WIDTH 13.9 % (11.5-14.5); WHITE BLOOD COUNT 4.2 X10'3 (4.5-11.0)
[2024-02-23 08:00] VITALS: RESP 17; O2SAT 98
[2024-02-23 11:02] VITALS: RESP 17
== END 2024-02-23 11:30 | disposition home or self-care (01) | DRG 470 ==
LOC: PRE-OP 08:56 → ORTHO 4S 08:57
PROVIDERS: ADMIT Orthopaedic Surgery; ATTEND Orthopaedic Surgery
PROC: 3E0T3BZ Introduction of Anesthetic Agent into Peripheral Nerves and Plexi, Percutaneous Approach (ICD-10-PCS; 2024-02-20)
PROC: 0SRB06Z Replacement of Left Hip Joint with Oxidized Zirconium on Polyethylene Synthetic Substitute, Open Approach (ICD-10-PCS; principal; 2024-02-20 11:22)
DX: M16.12 Unilateral primary osteoarthritis, left hip (principal); J44.9 Chronic obstructive pulmonary disease, unspecified; M41.50 Other secondary scoliosis, site unspecified; E66.9 Obesity, unspecified; Z68.27 Body mass index [BMI] 27.0-27.9, adult; Z88.2 Allergy status to sulfonamides; Z91.041 Radiographic dye allergy status; Z91.040 Latex allergy status; Z87.891 Personal history of nicotine dependence; Z90.49 Acquired absence of other specified parts of digestive tract
CPT/HCPCS: 36415; 71045; 72170; 80051; 80053; 80069; 82948; 85025; 86885; 86900; 86901; 87081; 94640; 94760; 97110; 97116; 97161; 97530; A4615; A7000; C1776; G0378; J0131; J0171; J0690; J0735; J1100; J1170; J1885; J2175; J2250; J2405; J2704; J2710; J2765; J2795; J3010; J3370; J3480; J3490; J7040; J7120; Q0169

== ENCOUNTER 2024-05-18 07:00 | Day surgery (SDC) | payer MEDICARE, MEDICAID ==
[2024-05-14 16:40] LABS: BASOPHILS % (AUTO) 0.2 % (0-1); EOSINOPHILS % (AUTO) 0.1 % (0-6); LYMPHOCYTES # (AUTO) 1.6 X10'3 (1.1-4.8); LYMPHOCYTES % (AUTO) 24.8 % (21-51); MEAN CORPUSCULAR HEMOGLOBIN 30.2 PG (27.0-31.0); MEAN CORPUSCULAR HGB CONC 33.5 g/dL (33.0-36.5); MEAN CORPUSCULAR VOLUME 89.9 FL (78-98); MEAN PLATELET VOLUME 9.4 FL (7.4-10.4); MONOCYTES # (AUTO) 0.6 X10'3 (0-0.9); MONOCYTES % (AUTO) 9.1 % (2-12); NEUTROPHILS # (AUTO) 4.1 X10'3 (1.8-7.7); NEUTROPHILS % (AUTO) 65.8 % (42-75); PRE OP HEMATOCRIT 37.1 % (35.0-45.0); PRE OP HEMOGLOBIN 12.4 g/dL (12.0-16.0); PRE OP PLATELET COUNT 230 X10'3 (140-440); PRE OP WHITE BLOOD COUNT 6.3 10'3 (4.8-10.8); RED BLOOD COUNT 4.12 X10'6 (4.20-5.60); RED CELL DISTRIBUTION WIDTH 14.4 % (11.5-14.5)
[2024-05-14 16:58] LABS: ALBUMIN 4.2 G/DL (3.4-5.0); ALBUMIN/GLOBULIN RATIO 1.1 (1.1-1.5); ALKALINE PHOSPHATASE 79 IU/L (46-116); BLOOD UREA NITROGEN 34 MG/DL (7-18); CALCIUM 9.6 MG/DL (8.5-10.1); CHLORIDE 102 MMOL/L (99-107); CREATININE 0.79 MG/DL (0.40-0.90); PRE OP ALT 25 U/L (30-65); PRE OP ANION GAP 10 (8-16); PRE OP AST 16 U/L (10-37); PRE OP BILIRUB, TOTAL 0.4 MG/DL (0.0-1.0); PRE OP GLUCOSE 108 MG/DL (70-104); PRE OP POTASSIUM 3.8 MMOL/L (3.4-5.1); PRE OP SODIUM 137 MMOL/L (135-145); TOTAL CARBON DIOXIDE 25.2 MMOL/L (24-32); TOTAL PROTEIN 8.2 G/DL (6.4-8.2); eGFR 72 ML/MIN
[~2024-05-18] VITALS: Ht 165.1 cm; Wt 68.6 kg
[2024-05-18] VITALS (8 sets, daily range): BP systolic 99–137; BP diastolic 68–86; PULSE 73–89; RESP 12–19; TEMP 98.5; O2SAT 96–100
[2024-05-18] MEDS: cefazolin 2gm/D5W 100mL 100 ML IV ONE (05:30)
[~2024-05-18 07:00] MED LIST changes: +FISH400C3 PO; -HYDROmorphone inj. 0.5 MG/0.5 ML DISP.SYRIN IV PRN; -acetaminophen 325mg tablet PO PRN; -bisacodyl 10mg suppository rectal RC PRN; -diphenhydrAMINE 25mg capsule PO PRN; -naloxone 0.4 mg/ml inj IV PRN; -proMETHazine 25mg tablet PO PRN
[2024-05-18] MEDS ORDERED: LIDOcaine 2% (20mg/ml) 5ml vial ONE (07:29)
[2024-05-18] MEDS ORDERED: HYDR-3972 PO (08:04)
[2024-05-18] MEDS ORDERED: LORA10CA PO (08:06)
[2024-05-18] MEDS: famotidine 20mg tablet PO ONE (08:11)
[2024-05-18] MEDS: ringers solution, lacted 1,000 ML IV SCH (08:11)
[2024-05-18] MEDS ORDERED: fentaNYL/PF 50MCG/1 ML 2ML syringe ONE (10:09)
[2024-05-18] MEDS ORDERED: sevoflurane 250ml liquid IH ONE (10:10)
[2024-05-18] MEDS ORDERED: proCHLORperazine 10 MG/2 ml inj IV PRN (10:50)
[2024-05-18] MEDS ORDERED: morphine 4 MG/ML inj SYRINge IV PRN (10:50)
[2024-05-18] MEDS ORDERED: ringers solution, lacted 1,000 ML IV SCH (10:50)
[2024-05-18] MEDS ORDERED: enalaprilat dihydrate 2.5mg/2ml vial IV PRN (10:50)
[2024-05-18] MEDS ORDERED: meperidine/PF 25mg/ml syringe IV PRN ×2 (10:50)
[2024-05-18] MEDS ORDERED: labetalol 20mg/4ml (5mg/ml) syringe IV PRN (10:50)
[2024-05-18] MEDS ORDERED: ondansetron/PF 4mg/2ml inj IV PRN (10:50)
[2024-05-18] MEDS: meperidine/PF 25mg/ml syringe IV PRN (11:03)
[2024-05-18] MEDS: morphine 2 MG/ML inj. syringe IV PRN (11:18)
[2024-05-18] MEDS: BUPIVAcaine/PF 2.5mg/ml (0.25%) 10ml vial ONE (12:08)
== END 2024-05-18 11:42 | disposition home or self-care (01) ==
LOC: PAS 07:00
PROVIDERS: ATTEND Orthopaedic Surgery Hand Surgery
DX: G56.21 Lesion of ulnar nerve, right upper limb (principal); M19.90 Unspecified osteoarthritis, unspecified site; J44.9 Chronic obstructive pulmonary disease, unspecified; Z79.899 Other long term (current) drug therapy; Z98.890 Other specified postprocedural states; Z90.49 Acquired absence of other specified parts of digestive tract; Z88.2 Allergy status to sulfonamides; Z86.19 Personal history of other infectious and parasitic diseases
CPT/HCPCS: 36415; 64718; 80053; 82948; 85025; J0690; J2001; J2175; J2270; J3010; J3490; J7120; Z7512; Z7610; A4215; A6222; A6449; J1100; J2405; J2704

== ENCOUNTER 2025-07-29 12:13 | Outpatient (CLI) | payer MEDICARE, MEDICAID ==
[~2025-07-29 12:13] MED LIST changes: +HYDR-3972 PO; +LORA10CA PO; -LYSI500T11 PO; +LYSI500T20 PO
--- NOTE | 2025-07-29 16:48 | RADIOLOGY REPORT ---
INDICATION: PAIN IN RIGHT ELBOW COMPARISON: None TECHNIQUE: CT of the right elbow was performed without contrast. Volume transverse images were obtained and reconstructed in multiple planes using bone and soft tissue algorithms. All CT scans at this medical facility are performed using dose modulation techniques as appropriate to a performed exam including the following: Automated exposure control was utilized; adjustment of the MA and/or KV according to patient size; and use of iterative reconstruction technique. CONTRAST: None Radiation Dose Information: CTDI volume is 3.26+ 0.14 mGy. Dose-length product is 85 mGy*cm FINDINGS: There is bony demineralization. Alignment is maintained. There is moderate degenerative change of the elbow joint with osteophyte formation and joint space narrowing. There are numerous well corticated osseous densities about the right elbow joint . No acute appearing fracture. Overlying soft tissues are intact. Trace elbow joint effusion. IMPRESSION: 1. No acute appearing fracture. 2. 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 3. Numerous well corticated osseous densities about the right elbow joint which may be sequelae of remote trauma , heterotopic ossification or intra-articular loose bodies. 4. Trace elbow joint effusion.
== END 2025-07-29 23:59 | disposition home or self-care (01) ==
LOC: RAD 12:13
PROVIDERS: ATTEND Physician Assistant
DX: M19.021 Primary osteoarthritis, right elbow (principal); M25.721 Osteophyte, right elbow; M25.821 Other specified joint disorders, right elbow; M81.0 Age-related osteoporosis without current pathological fracture; M25.521 Pain in right elbow; M19.121 Post-traumatic osteoarthritis, right elbow
CPT/HCPCS: 73200